=== PATIENT | male | born 1990 | race African-American/Black ===

== ENCOUNTER 2021-12-20 14:46 | Emergency (ER) | payer BC ==
[~2021-12-20] VITALS: Ht 213.4 cm; Wt 140.0 kg
[2021-12-20 15:19] VITALS: BP 121/98
[2021-12-20] MEDS ORDERED: XYL25J TOP (16:50)
[2021-12-20] MEDS ORDERED: DEXA4TAB67 PO (16:50)
== END 2021-12-20 16:58 | disposition home or self-care (01) ==
LOC: ER 14:48
DX: U07.1 COVID-19 (principal); J02.8 Acute pharyngitis due to other specified organisms; Z79.899 Other long term (current) drug therapy
CPT/HCPCS: 99283

== ENCOUNTER 2022-04-17 18:37 | Inpatient (IN) | payer BC ==
[~2022-04-17] VITALS: Ht 213.4 cm; Wt 171.4 kg
[~2022-04-17 18:37] MED LIST: DEXA4TAB67 PO; XYL25J TOP
[2022-04-17 19:35] LABS: BASOPHILS # (AUTO) 0.1 X10'3 (0-0.2); BASOPHILS % (AUTO) 0.8 % (0-1); EOSINOPHILS # (AUTO) 0.2 X10'3 (0-0.9); EOSINOPHILS % (AUTO) 1.8 % (0-6); LYMPHOCYTES % (AUTO) 32.1 % (21-51); MEAN CORPUSCULAR HEMOGLOBIN 25.4 PG (27.0-31.0); MEAN CORPUSCULAR HGB CONC 31.7 g/dL (33.0-36.5); MEAN CORPUSCULAR VOLUME 80.1 FL (78-98); MEAN PLATELET VOLUME 11.5 FL (7.4-10.4); MONOCYTES # (AUTO) 1.1 X10'3 (0-0.9); MONOCYTES % (AUTO) 11.3 % (2-12); NEUTROPHILS # (AUTO) 5.1 X10'3 (1.8-7.7); PLATELET COUNT 87 X10'3 (140-440); RED BLOOD COUNT 2.44 X10'6 (4.70-6.10); RED CELL DISTRIBUTION WIDTH 20.7 % (11.5-14.5); WHITE BLOOD COUNT 9.4 X10'3 (4.5-11.0)
[2022-04-17 19:49] LABS: HEMATOCRIT 19.5 % (42.0-52.0); HEMOGLOBIN 6.2 g/dl (14.0-17.9)
[2022-04-17 19:51] LABS: ALANINE AMINOTRANSFERASE 92 U/L (12-78); ALBUMIN 1.8 G/DL (3.4-5.0); ALBUMIN/GLOBULIN RATIO 0.5 (1.1-1.5); ALKALINE PHOSPHATASE 265 IU/L (46-116); ANION GAP 3 (8-16); ASPARTATE AMINO TRANSFERASE 109 U/L (10-37); BILIRUBIN,TOTAL 2.5 MG/DL (0.1-1.0); BLOOD UREA NITROGEN 26 MG/DL (7-18); BUN/CREATININE RATIO 30.6 (5.4-32.0); CALCIUM 7.7 MG/DL (8.5-10.1); CHLORIDE 109 MMOL/L (99-107); CREATININE 0.85 MG/DL (0.60-1.10); GLUCOSE 113 MG/DL (70-104); POTASSIUM 4.4 MMOL/L (3.5-5.1); SODIUM 137 MMOL/L (135-145); TOTAL CARBON DIOXIDE 25.4 MMOL/L (24-32); TOTAL PROTEIN 5.1 G/DL (6.4-8.2); eGFR > 90 ML/MIN
[2022-04-17] MEDS ORDERED: pantoprazole 40MG/NS 100ML BAG 100 ML IV ONE (19:55)
[2022-04-17] MEDS ORDERED: ondansetron/PF 4mg/2ml inj IV ONE (19:55)
[2022-04-17] MEDS ORDERED: normal saline 1000ML IV soln IVB ONE (19:55)
[2022-04-17] MEDS ORDERED: pantoprazole 40mg IV 80 MG in normal saline 100ml IV soln 100 ML IV ONE (19:55)
[2022-04-17 20:06] LABS: ETHANOL < 0.010 GM/DL (0.0-0.010)
[2022-04-17 20:31] LABS: ANISOCYTOSIS 3+; PLATELET ESTIMATE DECREASED
[2022-04-17 20:34] LABS: HYPOCHROMASIA 2+; LARGE PLATELETS FEW
[2022-04-17 20:35] LABS: TARGET CELLS FEW
[2022-04-17] MEDS: pantoprazole 40MG/NS 100ML BAG 100 ML IV SCH (21:01)
[2022-04-17 21:43] LABS: OCCULT BLOOD STOOL POSITIVE (Neg)
[2022-04-17 22:33] VITALS: BP 126/62
[2022-04-17 22:49] VITALS: BP 111/55
--- NOTE | 2022-04-17 23:00 | NUR ---
Informed Dr Carter of the temperature of the patient, he ordered tylenol.
[2022-04-17 23:04] VITALS: BP 118/44
[2022-04-17] MEDS ORDERED: acetaminophen 325mg tablet PO ONE (23:05)
[2022-04-17] MEDS ORDERED: acetaminophen 325mg tablet PO STA (23:17)
[2022-04-18] VITALS (12 sets, daily range): BP systolic 120–139; BP diastolic 60–81
[2022-04-18] MEDS: normal saline 1000ml 1,000 ML IV SCH ×4 (00:05→18:13)
[2022-04-18] MEDS ORDERED: mag hydrox/Alum hydrox/simeth 30ml oral suspension PO PRN (00:05)
[2022-04-18] MEDS ORDERED: morphine 2 MG/ML inj. syringe IV PRN ×2 (00:05)
[2022-04-18] MEDS ORDERED: diphenhydrAMINE 50 mg/ml inj IV PRN (00:05)
[2022-04-18] MEDS ORDERED: acetaminophen 650mg rectal suppository RC PRN (00:05)
[2022-04-18] MEDS ORDERED: HYDROcodone/acetaminophen 5mg/325mg tablet PO PRN (00:05)
[2022-04-18] MEDS ORDERED: acetaminophen 325mg tablet PO PRN ×2 (00:05)
[2022-04-18] MEDS ORDERED: diphenhydrAMINE 25mg capsule PO PRN (00:05)
[2022-04-18] MEDS ORDERED: HYDROmorphone inj. 0.5 MG/0.5 ML DISP.SYRIN IV PRN (00:05)
[2022-04-18] MEDS ORDERED: ondansetron/PF 4mg/2ml inj IV PRN (00:05)
[2022-04-18] MEDS ORDERED: bisacodyl 10mg suppository rectal RC PRN (00:05)
[2022-04-18] MEDS ORDERED: ondansetron 4mg rapidly disintigrating tab PO PRN (00:05)
[2022-04-18] MEDS ORDERED: magnesium hydroxide 30ml (MOM) UD suspension PO PRN (00:05)
[2022-04-18] MEDS ORDERED: HYDROcodone/acetaminophen 10/325mg tab PO PRN (00:05)
[2022-04-18] MEDS: octreotide inj. 500 MCG in normal saline 100ml IV soln 97.5 ML IV SCH ×2 (00:07→20:47)
--- NOTE | 2022-04-18 00:11 | NUR ---
Pt to CT via stretcher and RN
--- NOTE | 2022-04-18 00:15 | NUR ---
> received report from ED RN , PAT, pt coming from CT scan with ongoing 1st unit of PRBC , to ff another 2nd unit, ongoing Protonix IV bag 1 out of 2, pt has limited IV access with new incoming orders, tranexamic and Vit K IV drip, pt pale and cool to touch otherwise stable vital signs
[2022-04-18] MEDS ORDERED: octreotide inj. 500 MCG in normal saline 100ml IV soln 97.5 ML IV SCH (00:20)
[2022-04-18] MEDS ORDERED: phytonadione inj. 1 MG in normal saline 100ml IV soln 100 ML IV ONE (00:20)
[2022-04-18] MEDS ORDERED: tranexamic acid inj. 1,000 MG in normal saline 100ml IV soln 100 ML IV ONE (00:55)
[2022-04-18 00:59] LABS: HEMOGLOBIN A1C 5.1 % (4.5-6.2)
[2022-04-18 01:07] LABS: CREATINE KINASE 423 U/L (39-308); LIPASE 109 U/L (73-393); MAGNESIUM 1.5 MG/DL (1.5-2.4); PHOSPHORUS 3.4 MG/DL (2.3-4.5)
[2022-04-18] MEDS: pantoprazole 40MG/NS 100ML BAG 100 ML IV SCH ×6 (03:50→21:16)
--- NOTE | 2022-04-18 04:57 | NUR ---
> 2nd unit PRBC infused and completed, no further reactions noted
--- NOTE | 2022-04-18 06:27 | NUR ---
> Protonix not finished yet, another bag to follow, report given to LEW Amezquita
[2022-04-18 07:43] LABS: BASOPHILS # (AUTO) 0.1 X10'3 (0-0.2); BASOPHILS % (AUTO) 0.8 % (0-1); EOSINOPHILS # (AUTO) 0.3 X10'3 (0-0.9); EOSINOPHILS % (AUTO) 2.7 % (0-6); HEMATOCRIT 23.4 % (42.0-52.0); HEMOGLOBIN 7.6 g/dl (14.0-17.9); LYMPHOCYTES # (AUTO) 3.1 X10'3 (1.1-4.8); LYMPHOCYTES % (AUTO) 32.5 % (21-51); MEAN CORPUSCULAR HEMOGLOBIN 26.5 PG (27.0-31.0); MEAN CORPUSCULAR HGB CONC 32.5 g/dL (33.0-36.5); MEAN CORPUSCULAR VOLUME 81.5 FL (78-98); MEAN PLATELET VOLUME 11.3 FL (7.4-10.4); MONOCYTES # (AUTO) 1.3 X10'3 (0-0.9); MONOCYTES % (AUTO) 13.7 % (2-12); NEUTROPHILS # (AUTO) 4.9 X10'3 (1.8-7.7); NEUTROPHILS % (AUTO) 50.3 % (42-75); PLATELET COUNT 80 X10'3 (140-440); RED BLOOD COUNT 2.87 X10'6 (4.70-6.10); RED CELL DISTRIBUTION WIDTH 19.9 % (11.5-14.5); WHITE BLOOD COUNT 9.7 X10'3 (4.5-11.0)
[2022-04-18 07:51] LABS: ALANINE AMINOTRANSFERASE 92 U/L (12-78); ALBUMIN 1.8 G/DL (3.4-5.0); ALBUMIN/GLOBULIN RATIO 0.5 (1.1-1.5); ALKALINE PHOSPHATASE 262 IU/L (46-116); ANION GAP 5 (8-16); ASPARTATE AMINO TRANSFERASE 110 U/L (10-37); BILIRUBIN,TOTAL 3.2 MG/DL (0.1-1.0); BLOOD UREA NITROGEN 24 MG/DL (7-18); BUN/CREATININE RATIO 31.2 (5.4-32.0); CALCIUM 7.4 MG/DL (8.5-10.1); CHLORIDE 110 MMOL/L (99-107); CREATININE 0.77 MG/DL (0.60-1.10); GLUCOSE 98 MG/DL (70-104); POTASSIUM 4.5 MMOL/L (3.5-5.1); SODIUM 139 MMOL/L (135-145); TOTAL CARBON DIOXIDE 23.7 MMOL/L (24-32); TOTAL PROTEIN 5.3 G/DL (6.4-8.2); eGFR > 90 ML/MIN
[2022-04-18] MEDS: docusate sod 100mg capsule PO SCH ×2 (08:00→20:47)
[2022-04-18] MEDS ORDERED: fentaNYL/PF 50MCG/1 ML 2ML syringe ONE (08:53)
[2022-04-18] MEDS ORDERED: diphenhydrAMINE 50 mg/ml inj ONE (08:53)
[2022-04-18] MEDS ORDERED: MIDAZolam 1 MG/ML 5ML VIAL ONE (08:53)
[2022-04-18] MEDS ORDERED: LIDOcaine Viscous 15ml cup ONE (08:53)
--- NOTE | 2022-04-18 11:02 | NUR ---
Patients brother at bedside, updated on pt condition with patients permission.
[2022-04-18] MEDS ORDERED: NO HOME MEDS (15:58)
--- NOTE | 2022-04-18 16:25 | NUR ---
PER DR. JAYRO STANLEY TO START PATIENT ON CLEAR LIQUIDS AND ADVANCE TOLERATED.
--- NOTE | 2022-04-18 19:30 | NUR ---
A&Ox4, GCS 15, denies pain/discomfort. skin warm , dry and jaundice including sclera. Denies dizzines, weakness, and shortness of breath. Awaiting admission
[2022-04-18] MEDS ORDERED: temazepam 15mg capsule PO PRN (21:00)
[2022-04-18] MEDS: diatr meglu/diatrizoate 30ml oral sol.-(3 dose) bottle PO SCH (21:16)
[2022-04-18 21:34] LABS: CLARITY,URINE CLEAR (Clear); GLUCOSE, URINE NEGATIVE (Neg); KETONES,URINE NEGATIVE (Neg); LEUKOCYTE ESTERASE ,URINE NEGATIVE (Neg); NITRITES, URINE NEGATIVE (Neg); OCCULT BLOOD,URINE NEGATIVE (Neg); PROTEIN,URINE NEGATIVE (Neg)
[2022-04-18 21:35] LABS: UA COLLECTION TYPE CLN CATCH MIDSTREAM
[2022-04-18 21:36] LABS: COLOR,URINE DARK YELLOW (Yellow)
[2022-04-18 21:46] LABS: URINE AMPHETAMINE SCREEN NEGATIVE (Neg); URINE BARBITUATE SCREEN NEGATIVE (Neg); URINE BENZODIAZEPINES SCREEN POSITIVE (Neg); URINE CANNABINOID SCREEN NEGATIVE (Neg); URINE COCAINE SCREEN NEGATIVE (Neg); URINE METHADONE SCREEN NEGATIVE (Neg); URINE OPIATE SCREEN NEGATIVE (Neg); URINE PHENCYCLIDINE SCREEN NEGATIVE (Neg)
[2022-04-19] MEDS: pantoprazole 40MG/NS 100ML BAG 100 ML IV SCH ×5 (00:56→19:28)
[2022-04-19] MEDS: normal saline 1000ml 1,000 ML IV SCH ×4 (00:57→22:54)
[2022-04-19] MEDS: diatr meglu/diatrizoate 30ml oral sol.-(3 dose) bottle PO SCH ×2 (07:18→09:17)
[2022-04-19] MEDS: docusate sod 100mg capsule PO SCH ×2 (08:44→19:30)
[2022-04-19] MEDS ORDERED: iohexol 350MG/ML 100ml bottle IV ONE (08:45)
[2022-04-19 09:01] LABS: BASOPHILS % (AUTO) 0.5 % (0-1); EOSINOPHILS # (AUTO) 0.4 X10'3 (0-0.9); EOSINOPHILS % (AUTO) 5.7 % (0-6); HEMATOCRIT 23.3 % (42.0-52.0); HEMOGLOBIN 7.5 g/dl (14.0-17.9); LYMPHOCYTES # (AUTO) 2.1 X10'3 (1.1-4.8); LYMPHOCYTES % (AUTO) 29.6 % (21-51); MEAN CORPUSCULAR HEMOGLOBIN 26.7 PG (27.0-31.0); MEAN CORPUSCULAR HGB CONC 32.4 g/dL (33.0-36.5); MEAN CORPUSCULAR VOLUME 82.5 FL (78-98); MEAN PLATELET VOLUME 11.3 FL (7.4-10.4); MONOCYTES # (AUTO) 0.8 X10'3 (0-0.9); MONOCYTES % (AUTO) 11.7 % (2-12); NEUTROPHILS # (AUTO) 3.8 X10'3 (1.8-7.7); NEUTROPHILS % (AUTO) 52.5 % (42-75); PLATELET COUNT 66 X10'3 (140-440); RED BLOOD COUNT 2.82 X10'6 (4.70-6.10); RED CELL DISTRIBUTION WIDTH 19.5 % (11.5-14.5); WHITE BLOOD COUNT 7.2 X10'3 (4.5-11.0)
[2022-04-19 09:37] LABS: ALANINE AMINOTRANSFERASE 90 U/L (12-78); ALBUMIN 1.8 G/DL (3.4-5.0); ALBUMIN/GLOBULIN RATIO 0.5 (1.1-1.5); ALKALINE PHOSPHATASE 246 IU/L (46-116); ANION GAP 7 (8-16); ASPARTATE AMINO TRANSFERASE 107 U/L (10-37); BLOOD UREA NITROGEN 15 MG/DL (7-18); BUN/CREATININE RATIO 20.8 (5.4-32.0); CALCIUM 7.4 MG/DL (8.5-10.1); CHLORIDE 111 MMOL/L (99-107); CHOL/HDL RATIO 5.2 (0.00-4.99); CHOLESTEROL 114 MG/DL (0-200); CREATININE 0.72 MG/DL (0.60-1.10); GLUCOSE 78 MG/DL (70-104); HDL CHOLESTEROL 22 MG/DL (35-60); LDL CHOLESTEROL 75 MG/DL (50-100); POTASSIUM 4.2 MMOL/L (3.5-5.1); SODIUM 142 MMOL/L (135-145); TOTAL CARBON DIOXIDE 24.3 MMOL/L (24-32); TOTAL PROTEIN 5.5 G/DL (6.4-8.2); TRIGLYCERIDES 76 MG/DL (20-135); eGFR > 90 ML/MIN
--- NOTE | 2022-04-19 10:22 | NUR ---
Pt transferred to fast track at 1020. RN gave verbal report to Argenis and LEW Rojas. Pt stable. VS WNL.
[2022-04-19 12:26] LABS: HBSAG SCREEN Negative (Negative); HEP B CORE AB, TOT Negative (Negative); HEPATITIS C ANTIBODY <0.1 s/co ratio (0.0-0.9)
[2022-04-19 12:38] LABS: ANISOCYTOSIS 2+; PLATELET ESTIMATE DECREASED
[2022-04-19 12:39] LABS: BURR CELLS FEW; LARGE PLATELETS MODERATE; SCHISTOCYTES FEW
[2022-04-19 12:40] LABS: HYPOCHROMASIA 1+; POLYCHROMASIA FEW
--- NOTE | 2022-04-19 13:19 | NUR ---
RN gave nurse report to LEW Tavera in short stay. Pt stable. Fast track team will transfer pt to the floor. Addendum: 04/19/22 at 1319 by CALLY Report given @ 1314.
--- NOTE | 2022-04-19 13:33 | NUR ---
Patient arrived to room 1336 cardiac short stay stable at this time. Brother Tevin at bedside. Received report from Harshil HACKETT from the ER. Will continue to monitor.
[2022-04-19 13:47] VITALS: BP 136/75
[2022-04-19] MEDS ORDERED: LIDOcaine 1% (10mg/ml) 2ml vial ONE (14:14)
[2022-04-19] MEDS: octreotide inj. 500 MCG in normal saline 100ml IV soln 97.5 ML IV SCH (15:19)
[2022-04-19 15:23] VITALS: BP 131/79
[2022-04-19 15:30] VITALS: BP 134/77
[2022-04-19 15:55] VITALS: BP 141/78
--- NOTE | 2022-04-19 16:15 | NUR ---
Patient admitted to tele room 3023 A, report given to Love Brink RN prior to transport. compliance monitor uneventful during transfer. Patient VSS. Belongings at bedside. Tele monitor placed on patient. Love HACKETT and Parisa HACKETT at bedside. Called patient's contact- Tevin to make aware of new room number.
[2022-04-19 18:00] VITALS: BP 145/82
--- NOTE | 2022-04-19 18:41 | NUR ---
Problems reprioritized. Patient report given, questions answered & plan of care reviewed with Cindi HACKETT, patient stable at transfer of care.
--- NOTE | 2022-04-19 18:42 | NUR ---
Patient in room PCU 3023. I have received report from LEW Mccauley and had the opportunity to ask questions and assume patient care.
[2022-04-19 21:06] LABS: HEMATOCRIT 22.7 % (42.0-52.0); HEMOGLOBIN 7.4 g/dl (14.0-17.9); MEAN CORPUSCULAR HEMOGLOBIN 26.8 PG (27.0-31.0); MEAN CORPUSCULAR HGB CONC 32.4 g/dL (33.0-36.5); MEAN CORPUSCULAR VOLUME 82.7 FL (78-98); PLATELET COUNT 65 X10'3 (140-440); RED BLOOD COUNT 2.75 X10'6 (4.70-6.10); RED CELL DISTRIBUTION WIDTH 20.1 % (11.5-14.5); WHITE BLOOD COUNT 6.9 X10'3 (4.5-11.0)
[2022-04-19 22:00] VITALS: BP 128/70
[2022-04-20] MEDS: pantoprazole 40MG/NS 100ML BAG 100 ML IV SCH ×5 (00:39→19:57)
[2022-04-20] MEDS: normal saline 1000ml 1,000 ML IV SCH (05:36)
--- NOTE | 2022-04-20 06:19 | NUR ---
Problems reprioritized. Patient report given, questions answered & plan of care reviewed with LEW Heck.
[2022-04-20 06:30] VITALS: BP 129/67
--- NOTE | 2022-04-20 07:11 | NUR ---
Patient in room PCU 3023. I have received report from Cindi HACKETT and had the opportunity to ask questions and assume patient care.Bedside report completed. Call light in reach. Pt denies needs. Addendum: 04/20/22 at 0712 by Coral Brink RN Amended: Links added.
[2022-04-20] MEDS: docusate sod 100mg capsule PO SCH ×2 (08:00→20:00)
[2022-04-20] MEDS: octreotide inj. 500 MCG in normal saline 100ml IV soln 97.5 ML IV SCH (08:13)
[2022-04-20 11:00] VITALS: BP 134/74
[2022-04-20 13:06] LABS: BASOPHILS % (AUTO) 0.6 % (0-1); EOSINOPHILS # (AUTO) 0.2 X10'3 (0-0.9); EOSINOPHILS % (AUTO) 4.4 % (0-6); HEMOGLOBIN 7.5 g/dl (14.0-17.9); LYMPHOCYTES # (AUTO) 1.7 X10'3 (1.1-4.8); LYMPHOCYTES % (AUTO) 30.4 % (21-51); MEAN CORPUSCULAR HEMOGLOBIN 27.1 PG (27.0-31.0); MEAN CORPUSCULAR HGB CONC 32.6 g/dL (33.0-36.5); MEAN CORPUSCULAR VOLUME 82.9 FL (78-98); MEAN PLATELET VOLUME 10.7 FL (7.4-10.4); MONOCYTES # (AUTO) 0.6 X10'3 (0-0.9); NEUTROPHILS # (AUTO) 3.1 X10'3 (1.8-7.7); NEUTROPHILS % (AUTO) 54.6 % (42-75); PLATELET COUNT 77 X10'3 (140-440); RED BLOOD COUNT 2.77 X10'6 (4.70-6.10); RED CELL DISTRIBUTION WIDTH 20.2 % (11.5-14.5); WHITE BLOOD COUNT 5.7 X10'3 (4.5-11.0)
[2022-04-20 13:10] LABS: PSA, FREE 0.04 ng/mL
[2022-04-20 13:24] LABS: ALANINE AMINOTRANSFERASE 99 U/L (12-78); ALBUMIN 1.9 G/DL (3.4-5.0); ALBUMIN/GLOBULIN RATIO 0.5 (1.1-1.5); ALKALINE PHOSPHATASE 266 IU/L (46-116); ANION GAP 8 (8-16); ASPARTATE AMINO TRANSFERASE 109 U/L (10-37); BILIRUBIN,TOTAL 2.9 MG/DL (0.1-1.0); BLOOD UREA NITROGEN 12 MG/DL (7-18); CALCIUM 7.5 MG/DL (8.5-10.1); CHLORIDE 109 MMOL/L (99-107); GLUCOSE 89 MG/DL (70-104); SODIUM 140 MMOL/L (135-145); TOTAL CARBON DIOXIDE 22.8 MMOL/L (24-32); TOTAL PROTEIN 5.5 G/DL (6.4-8.2); eGFR > 90 ML/MIN
--- NOTE | 2022-04-20 13:41 | NUR ---
PAGER ID: [phone] MESSAGE: [phone] Rakan. He is too BIG for [facility] MRI. We also do not have a power injector needed for a Dynamic Liver MRI. Prerna does not as well. Only I would be able to complete this test. Coral PCUPAGER ID: [phone]
[2022-04-20 15:00] VITALS: BP 131/71
[2022-04-20 18:00] VITALS: BP 149/86
--- NOTE | 2022-04-20 18:19 | NUR ---
Problems reprioritized. Patient report given, questions answered & plan of care reviewed with Maria Victoria HACKETT. Bedside report completed. Family at bedside.. Addendum: 04/20/22 at 1820 by Coral Brink RN Amended: Links added.
[2022-04-20 22:00] VITALS: BP 141/82
[2022-04-21] VITALS (10 sets, daily range): BP systolic 124–139; BP diastolic 73–85
[2022-04-21] MEDS: pantoprazole 40MG/NS 100ML BAG 100 ML IV SCH ×5 (01:10→21:12)
[2022-04-21] MEDS: octreotide inj. 500 MCG in normal saline 100ml IV soln 97.5 ML IV SCH ×2 (06:55→06:56)
--- NOTE | 2022-04-21 07:46 | NUR ---
Patient in room PCU 3023. I have received report from LEW LAKE, and had the opportunity to ask questions and assume patient care.
--- NOTE | 2022-04-21 07:50 | NUR ---
Patient in room PCU 3023. I have received report from LEW DELVALLE, and had the opportunity to ask questions and assume patient care.
--- NOTE | 2022-04-21 07:56 | NUR ---
PAGE SENT PAGER ID: [phone] MESSAGE: [phone], ROYAL COLÓNAHON, PT'S BROTHER WANTS TO PLACE PT ON COMFORT CARE. PLEASE PHONE SIVA SHAHON - [phone]. THANK YOU, KAREN [phone] Addendum: 04/21/22 at 0758 by Karen Dallas RN WRONG PT
[2022-04-21] MEDS: docusate sod 100mg capsule PO SCH (08:00)
[2022-04-21 09:36] LABS: MEAN PLATELET VOLUME 9.9 FL (7.4-10.4)
[2022-04-21 09:38] LABS: MEAN CORPUSCULAR HEMOGLOBIN 26.8 PG (27.0-31.0); MEAN CORPUSCULAR HGB CONC 32.1 g/dL (33.0-36.5); MEAN CORPUSCULAR VOLUME 83.5 FL (78-98); PLATELET COUNT 74 X10'3 (140-440); RED BLOOD COUNT 2.55 X10'6 (4.70-6.10); RED CELL DISTRIBUTION WIDTH 19.6 % (11.5-14.5); WHITE BLOOD COUNT 4.7 X10'3 (4.5-11.0)
[2022-04-21 09:40] LABS: HEMOGLOBIN 6.8 g/dl (14.0-17.9)
[2022-04-21 09:41] LABS: HEMATOCRIT 21.3 % (42.0-52.0)
--- NOTE | 2022-04-21 09:42 | NUR ---
CRITICAL LAB VALUES TAKEN FROM LAB, REPORTED TO PRIMARY RN.
--- NOTE | 2022-04-21 09:46 | NUR ---
PAGE SENT PAGER ID: [phone] MESSAGE: [id number], NICOLLE HANLEY, CRITICAL LAB - HGB 6.8, HCT 21.3. THANK YOU, VIVIEN [id number]
--- NOTE | 2022-04-21 09:47 | NUR ---
NO NEW ORDERS AT THIS TIME
[2022-04-21 09:56] LABS: ANISOCYTOSIS 2+; MICROCYTOSIS 1+; PLATELET ESTIMATE DECREASED; TOTAL CELLS COUNTED 100
[2022-04-21 09:57] LABS: HYPOCHROMASIA 1+; POIKILOCYTOSIS 1+
[2022-04-21 09:58] LABS: ALANINE AMINOTRANSFERASE 95 U/L (12-78); ALBUMIN 1.8 G/DL (3.4-5.0); ALBUMIN/GLOBULIN RATIO 0.5 (1.1-1.5); ALKALINE PHOSPHATASE 253 IU/L (46-116); ANION GAP 9 (8-16); ASPARTATE AMINO TRANSFERASE 101 U/L (10-37); BILIRUBIN,TOTAL 2.6 MG/DL (0.1-1.0); BLOOD UREA NITROGEN 10 MG/DL (7-18); BUN/CREATININE RATIO 12.2 (5.4-32.0); CALCIUM 7.3 MG/DL (8.5-10.1); CHLORIDE 107 MMOL/L (99-107); CREATININE 0.82 MG/DL (0.60-1.10); GLUCOSE 113 MG/DL (70-104); SODIUM 140 MMOL/L (135-145); TOTAL CARBON DIOXIDE 24.1 MMOL/L (24-32); TOTAL PROTEIN 5.1 G/DL (6.4-8.2); eGFR > 90 ML/MIN
[2022-04-21] MEDS ORDERED: morphine 2 MG/ML inj. syringe IV PRN ×2 (16:25)
--- NOTE | 2022-04-21 18:42 | NUR ---
Problems reprioritized. Patient report given, questions answered & plan of care reviewed with LEW MONROY.
[2022-04-21 19:12] LABS: HEMATOCRIT 24.1 % (42.0-52.0); HEMOGLOBIN 7.9 g/dl (14.0-17.9); MEAN CORPUSCULAR HGB CONC 32.8 g/dL (33.0-36.5); MEAN CORPUSCULAR VOLUME 82.2 FL (78-98); MEAN PLATELET VOLUME 10.1 FL (7.4-10.4); PLATELET COUNT 86 X10'3 (140-440); RED BLOOD COUNT 2.93 X10'6 (4.70-6.10); RED CELL DISTRIBUTION WIDTH 19.5 % (11.5-14.5); WHITE BLOOD COUNT 5.7 X10'3 (4.5-11.0)
[2022-04-22] VITALS (8 sets, daily range): BP systolic 122–144; BP diastolic 68–90
[2022-04-22] MEDS: pantoprazole 40MG/NS 100ML BAG 100 ML IV SCH ×5 (01:37→21:15)
[2022-04-22] MEDS: octreotide inj. 500 MCG in normal saline 100ml IV soln 97.5 ML IV SCH ×2 (01:42→09:06)
[2022-04-22 05:53] LABS: BASOPHILS # (AUTO) 0.1 X10'3 (0-0.2); BASOPHILS % (AUTO) 1.2 % (0-1); EOSINOPHILS # (AUTO) 0.3 X10'3 (0-0.9); EOSINOPHILS % (AUTO) 5.8 % (0-6); HEMATOCRIT 24.7 % (42.0-52.0); LYMPHOCYTES # (AUTO) 1.2 X10'3 (1.1-4.8); LYMPHOCYTES % (AUTO) 24.2 % (21-51); MEAN CORPUSCULAR HEMOGLOBIN 26.7 PG (27.0-31.0); MEAN CORPUSCULAR HGB CONC 32.4 g/dL (33.0-36.5); MEAN CORPUSCULAR VOLUME 82.4 FL (78-98); MEAN PLATELET VOLUME 9.7 FL (7.4-10.4); MONOCYTES # (AUTO) 0.6 X10'3 (0-0.9); MONOCYTES % (AUTO) 12.5 % (2-12); NEUTROPHILS # (AUTO) 2.8 X10'3 (1.8-7.7); NEUTROPHILS % (AUTO) 56.3 % (42-75); PLATELET COUNT 91 X10'3 (140-440); RED CELL DISTRIBUTION WIDTH 19.2 % (11.5-14.5)
[2022-04-22 06:17] LABS: ALANINE AMINOTRANSFERASE 98 U/L (12-78); ALBUMIN 1.8 G/DL (3.4-5.0); ALBUMIN/GLOBULIN RATIO 0.5 (1.1-1.5); ALKALINE PHOSPHATASE 278 IU/L (46-116); ANION GAP 5 (8-16); ASPARTATE AMINO TRANSFERASE 108 U/L (10-37); BILIRUBIN,TOTAL 3.1 MG/DL (0.1-1.0); BLOOD UREA NITROGEN 8 MG/DL (7-18); BUN/CREATININE RATIO 9.4 (5.4-32.0); CALCIUM 7.3 MG/DL (8.5-10.1); CHLORIDE 110 MMOL/L (99-107); CREATININE 0.85 MG/DL (0.60-1.10); GLUCOSE 92 MG/DL (70-104); POTASSIUM 4.1 MMOL/L (3.5-5.1); SODIUM 139 MMOL/L (135-145); TOTAL CARBON DIOXIDE 24.4 MMOL/L (24-32); TOTAL PROTEIN 5.2 G/DL (6.4-8.2); eGFR > 90 ML/MIN
--- NOTE | 2022-04-22 15:01 | NUR ---
Paged Dr Richards PAGER ID: [phone] MESSAGE: [id number]. Rakan. Pt concerned re: unknown diagnosis & does not want to be d/c'd prematurely. FYI.
--- NOTE | 2022-04-22 15:07 | NUR ---
Per ; we are working with Case mgmt for open MRI. Advised patient of such. Pt verbalized understanding.
[2022-04-22] MEDS: normal saline 1000ml 1,000 ML IV SCH (16:18)
--- NOTE | 2022-04-22 17:41 | NUR ---
Pt and pt family has had many questions throughout shift. Pt states that Dr Thompson said that pt will be d/c'd and have to do MRI outpatient. Confirmed with Dr Richards that we are working on open MRI with case mgmt. Pt states that he is worried about all these different answers. Pt does not feel safe to be d/c'd until a diagnosis has been made. Reiterated again that Dr Richards is working with case mgmt re: open MRI.
--- NOTE | 2022-04-22 17:57 | NUR ---
Paged [facility] [phone]. Rakan. see my note from 04/22 at 8736 re: patient concerns. SANDY Case
--- NOTE | 2022-04-22 18:21 | NUR ---
Student documentation: I have reviewed and agree with all interventions, assessments performed and documented by Cece.
--- NOTE | 2022-04-22 18:21 | NUR ---
Student Medication Administration: For this medication-pass time frame, all medication were reviewed, dispensed, administered and documented per hospital policy by Cece, eri and myself.
[2022-04-23] MEDS: pantoprazole 40MG/NS 100ML BAG 100 ML IV SCH ×2 (01:47→06:56)
[2022-04-23] MEDS: octreotide inj. 500 MCG in normal saline 100ml IV soln 97.5 ML IV SCH (01:50)
[2022-04-23 02:00] VITALS: BP 108/59
[2022-04-23 06:00] VITALS: BP 122/86
[2022-04-23 06:54] LABS: BASOPHILS % (AUTO) 0.5 % (0-1); EOSINOPHILS # (AUTO) 0.2 X10'3 (0-0.9); EOSINOPHILS % (AUTO) 2.7 % (0-6); HEMATOCRIT 25.3 % (42.0-52.0); HEMOGLOBIN 8.4 g/dl (14.0-17.9); LYMPHOCYTES # (AUTO) 1.3 X10'3 (1.1-4.8); LYMPHOCYTES % (AUTO) 21.9 % (21-51); MEAN CORPUSCULAR HEMOGLOBIN 27.3 PG (27.0-31.0); MEAN CORPUSCULAR HGB CONC 33.2 g/dL (33.0-36.5); MEAN CORPUSCULAR VOLUME 82.1 FL (78-98); MEAN PLATELET VOLUME 9.8 FL (7.4-10.4); MONOCYTES # (AUTO) 0.8 X10'3 (0-0.9); MONOCYTES % (AUTO) 13.3 % (2-12); NEUTROPHILS # (AUTO) 3.8 X10'3 (1.8-7.7); NEUTROPHILS % (AUTO) 61.6 % (42-75); PLATELET COUNT 80 X10'3 (140-440); RED BLOOD COUNT 3.08 X10'6 (4.70-6.10); RED CELL DISTRIBUTION WIDTH 18.8 % (11.5-14.5); WHITE BLOOD COUNT 6.1 X10'3 (4.5-11.0)
[2022-04-23 07:20] LABS: ANISOCYTOSIS 2+; HYPOCHROMASIA 2+; PLATELET ESTIMATE DECREASED; SCHISTOCYTES FEW
[2022-04-23 07:22] LABS: POLYCHROMASIA FEW
[2022-04-23 07:26] LABS: ALANINE AMINOTRANSFERASE 100 U/L (12-78); ALBUMIN 1.6 G/DL (3.4-5.0); ALBUMIN/GLOBULIN RATIO 0.4 (1.1-1.5); ALKALINE PHOSPHATASE 289 IU/L (46-116); ANION GAP 7 (8-16); ASPARTATE AMINO TRANSFERASE 115 U/L (10-37); BILIRUBIN,TOTAL 2.9 MG/DL (0.1-1.0); BLOOD UREA NITROGEN 9 MG/DL (7-18); BUN/CREATININE RATIO 11.5 (5.4-32.0); CALCIUM 7.3 MG/DL (8.5-10.1); CHLORIDE 109 MMOL/L (99-107); CREATININE 0.78 MG/DL (0.60-1.10); GLUCOSE 91 MG/DL (70-104); SODIUM 135 MMOL/L (135-145); TOTAL CARBON DIOXIDE 18.8 MMOL/L (24-32); TOTAL PROTEIN 5.3 G/DL (6.4-8.2); eGFR > 90 ML/MIN
[2022-04-23 07:33] LABS: POTASSIUM 4.2 MMOL/L (3.5-5.1)
--- NOTE | 2022-04-23 09:19 | NUR ---
Initial: Pt admitted w/ hematemesis, cirrhosis w/ portal HTN and esophageal varices, and liver mass per EMR. Currently on Full liquid diet initially w/ 100% intake of meals though has been down to mostly 0% since night of 04/21. Recommend advancing pt to Regular or Sodium restricted diet as tolerated. Pt DOES NOT need Heart Healthy diet. Pt is at high risk for developing malnutrition if diet not advanced. Pt had paracentesis 04/22 w/ 2L out per documentation. LBM 04/20. Will continue to monitor. Recs: 1. Advance to Regular or Sodium Restricted diet as tolerated 2. Monitor need for additional food/ONS pending diet advancement 3. Bowel care per rx 4. Scaled wts Addendum: 04/23/22 at [address] Amended: Links added.
[2022-04-23 11:00] VITALS: BP 117/86
[2022-04-23 15:30] VITALS: BP 133/65
[2022-04-23 18:00] VITALS: BP 139/71
--- NOTE | 2022-04-23 18:22 | NUR ---
Student documentation: I have reviewed and agree with all interventions, assessments performed and documented by Cece.
--- NOTE | 2022-04-23 18:22 | NUR ---
Student Medication Administration: For this medication-pass time frame, all medication were reviewed, dispensed, administered and documented per hospital policy by eri Zhao and Jessica Arenas RN. .
[2022-04-23] MEDS: pantoprazole 40mg Tablet.DR PO SCH (21:01)
[2022-04-23 22:00] VITALS: BP 136/69
[2022-04-24 02:00] VITALS: BP 123/70
[2022-04-24 06:00] VITALS: BP 119/64
[2022-04-24] MEDS: pantoprazole 40mg Tablet.DR PO SCH ×2 (08:00→20:42)
[2022-04-24] MEDS ORDERED: LORazepam 2 mg/ml vial IV ONE (08:35)
[2022-04-24 11:00] VITALS: BP 122/53
--- NOTE | 2022-04-24 12:55 | NUR ---
sent to Dr. buchanan: [id number] Rakan: MRI at [facility] unable to do pt's MRI today. Pt will go tomorrow. Did you want to order labs for today? thank you. Ashley HACKETT [phone]
[2022-04-24 13:46] LABS: BASOPHILS # (AUTO) 0.1 X10'3 (0-0.2); BASOPHILS % (AUTO) 0.9 % (0-1); EOSINOPHILS # (AUTO) 0.1 X10'3 (0-0.9); EOSINOPHILS % (AUTO) 1.8 % (0-6); HEMATOCRIT 25.8 % (42.0-52.0); HEMOGLOBIN 8.2 g/dl (14.0-17.9); LYMPHOCYTES # (AUTO) 1.5 X10'3 (1.1-4.8); LYMPHOCYTES % (AUTO) 20.8 % (21-51); MEAN CORPUSCULAR HEMOGLOBIN 26.1 PG (27.0-31.0); MEAN CORPUSCULAR HGB CONC 31.9 g/dL (33.0-36.5); MEAN PLATELET VOLUME 9.2 FL (7.4-10.4); MONOCYTES # (AUTO) 0.8 X10'3 (0-0.9); MONOCYTES % (AUTO) 11.3 % (2-12); NEUTROPHILS # (AUTO) 4.6 X10'3 (1.8-7.7); NEUTROPHILS % (AUTO) 65.2 % (42-75); PLATELET COUNT 105 X10'3 (140-440); RED BLOOD COUNT 3.15 X10'6 (4.70-6.10); RED CELL DISTRIBUTION WIDTH 18.8 % (11.5-14.5); WHITE BLOOD COUNT 7.1 X10'3 (4.5-11.0)
[2022-04-24 14:05] LABS: ALANINE AMINOTRANSFERASE 101 U/L (12-78); ALBUMIN 1.8 G/DL (3.4-5.0); ALBUMIN/GLOBULIN RATIO 0.5 (1.1-1.5); ALKALINE PHOSPHATASE 294 IU/L (46-116); ANION GAP 8 (8-16); ASPARTATE AMINO TRANSFERASE 104 U/L (10-37); BILIRUBIN,TOTAL 2.9 MG/DL (0.1-1.0); BLOOD UREA NITROGEN 9 MG/DL (7-18); BUN/CREATININE RATIO 10.8 (5.4-32.0); CALCIUM 7.6 MG/DL (8.5-10.1); CHLORIDE 108 MMOL/L (99-107); CREATININE 0.83 MG/DL (0.60-1.10); GLUCOSE 90 MG/DL (70-104); POTASSIUM 3.7 MMOL/L (3.5-5.1); SODIUM 141 MMOL/L (135-145); TOTAL CARBON DIOXIDE 25.4 MMOL/L (24-32); TOTAL PROTEIN 5.7 G/DL (6.4-8.2); eGFR > 90 ML/MIN
[2022-04-24 15:00] VITALS: BP 132/71
[2022-04-24 18:00] VITALS: BP 143/80
[2022-04-24 22:00] VITALS: BP 139/79
[2022-04-25 02:09] VITALS: BP 117/71
[2022-04-25] MEDS ORDERED: LORazepam 2 mg/ml vial IV ONE (06:00)
[2022-04-25 06:30] VITALS: BP 133/70
--- NOTE | 2022-04-25 06:30 | NUR ---
Patient in room PCU 3023. I have received report from Cris Chaparro RN and had the opportunity to ask questions and assume patient care.Bedside report completed. Pt awaiting MRI at [facility]. Addendum: 04/25/22 at 0728 by Coral Brink RN Amended: Links added.
[2022-04-25 07:03] LABS: BASOPHILS # (AUTO) 0.1 X10'3 (0-0.2); EOSINOPHILS # (AUTO) 0.2 X10'3 (0-0.9); EOSINOPHILS % (AUTO) 2.8 % (0-6); HEMOGLOBIN 8.4 g/dl (14.0-17.9); LYMPHOCYTES # (AUTO) 2.1 X10'3 (1.1-4.8); LYMPHOCYTES % (AUTO) 26.9 % (21-51); MEAN CORPUSCULAR HEMOGLOBIN 26.4 PG (27.0-31.0); MEAN CORPUSCULAR HGB CONC 32.3 g/dL (33.0-36.5); MEAN CORPUSCULAR VOLUME 81.8 FL (78-98); MEAN PLATELET VOLUME 9.7 FL (7.4-10.4); MONOCYTES % (AUTO) 12.8 % (2-12); NEUTROPHILS # (AUTO) 4.5 X10'3 (1.8-7.7); NEUTROPHILS % (AUTO) 56.5 % (42-75); PLATELET COUNT 111 X10'3 (140-440); RED BLOOD COUNT 3.17 X10'6 (4.70-6.10); RED CELL DISTRIBUTION WIDTH 18.9 % (11.5-14.5); WHITE BLOOD COUNT 7.9 X10'3 (4.5-11.0)
[2022-04-25 07:26] LABS: ALANINE AMINOTRANSFERASE 94 U/L (12-78); ALBUMIN 1.8 G/DL (3.4-5.0); ALBUMIN/GLOBULIN RATIO 0.5 (1.1-1.5); ALKALINE PHOSPHATASE 319 IU/L (46-116); ANION GAP 6 (8-16); ASPARTATE AMINO TRANSFERASE 104 U/L (10-37); BILIRUBIN,TOTAL 3.4 MG/DL (0.1-1.0); BLOOD UREA NITROGEN 10 MG/DL (7-18); BUN/CREATININE RATIO 10.8 (5.4-32.0); CALCIUM 7.6 MG/DL (8.5-10.1); CHLORIDE 106 MMOL/L (99-107); CREATININE 0.93 MG/DL (0.60-1.10); GLUCOSE 92 MG/DL (70-104); MAGNESIUM 1.7 MG/DL (1.5-2.4); PHOSPHORUS 3.6 MG/DL (2.3-4.5); SODIUM 137 MMOL/L (135-145); TOTAL CARBON DIOXIDE 24.8 MMOL/L (24-32); TOTAL PROTEIN 5.5 G/DL (6.4-8.2); eGFR > 90 ML/MIN
--- NOTE | 2022-04-25 07:43 | NUR ---
Reassessment: Pt continues on Full liquid diet w/ mostly 0% intake since the night of 04/21 not meeting needs. Pt leaving for MRI this morning per EMR, left message w/ RN recommending advancing to Regular diet if MD agreeable. Given inadequate energy intake r/t restrictive diet order this admit and moderate edema pt meets criteria for malnutrition. No change to recommendations at this time, will continue to monitor. Recs: 1. Advance to Regular diet as medically appropriate 2. Monitor need for additional food/ONS pending diet advancement 3. Bowel care per rx 4. Scaled wts Addendum: 04/25/22 at [address] Amended: Links added.
[2022-04-25] MEDS: pantoprazole 40mg Tablet.DR PO SCH ×2 (10:00→21:20)
[2022-04-25 11:16] VITALS: BP 116/56
[2022-04-25 14:42] VITALS: BP 116/61
--- NOTE | 2022-04-25 14:48 | NUR ---
Message: 3021s Rakan. Still waiting on report of MRI. We have contacted [facility]. Kayla has placed it stat now for radiologist to read. That was 2 hours age. rudolph PERALTA
[2022-04-25 18:00] VITALS: BP 123/54
--- NOTE | 2022-04-25 18:19 | NUR ---
Problems reprioritized. Patient report given, questions answered & plan of care reviewed with Sheryl HACKETT. Bedside report completed. Family at bedside. Call light in reach. Addendum: 04/25/22 at 1820 by Coral Brink RN Amended: Links added.
--- NOTE | 2022-04-25 19:06 | NUR ---
Patient in room PCU 3023A. I have received report from Coral HACKETT and had the opportunity to ask questions and assume patient care. Pt is laying semi fowlers in bed on cellphone. Pt on RA. No s/s of distress. Pt declines any c/o pain at this time. BLL, call light within reach, frequently used items in reach, frequent rounding, clam grader socks on. [facility]
[2022-04-25 22:00] VITALS: BP 127/73
--- NOTE | 2022-04-26 06:08 | NUR ---
Patient in room PCU 3023. I have received report from Sheryl HACKETT and had the opportunity to ask questions and assume patient care. Bedside report completed. Pt sleeping no distress, Call light in reach. Addendum: 04/26/22 at 0609 by Coral Brink RN Amended: Links added.
--- NOTE | 2022-04-26 06:12 | NUR ---
Problems reprioritized. Patient report given, questions answered & plan of care reviewed with Coral HACKETT.
[2022-04-26 06:26] LABS: HEMOGLOBIN 7.5 g/dl (14.0-17.9); WHITE BLOOD COUNT 6.4 X10'3 (4.5-11.0)
[2022-04-26 06:30] LABS: BASOPHILS # (AUTO) 0.1 X10'3 (0-0.2); EOSINOPHILS # (AUTO) 0.2 X10'3 (0-0.9); EOSINOPHILS % (AUTO) 3.3 % (0-6); HEMATOCRIT 23.1 % (42.0-52.0); LYMPHOCYTES # (AUTO) 1.4 X10'3 (1.1-4.8); LYMPHOCYTES % (AUTO) 21.4 % (21-51); MEAN CORPUSCULAR HEMOGLOBIN 26.4 PG (27.0-31.0); MEAN CORPUSCULAR HGB CONC 32.4 g/dL (33.0-36.5); MEAN CORPUSCULAR VOLUME 81.6 FL (78-98); MEAN PLATELET VOLUME 9.5 FL (7.4-10.4); MONOCYTES % (AUTO) 14.9 % (2-12); NEUTROPHILS # (AUTO) 3.8 X10'3 (1.8-7.7); NEUTROPHILS % (AUTO) 59.4 % (42-75); PLATELET COUNT 105 X10'3 (140-440); RED BLOOD COUNT 2.83 X10'6 (4.70-6.10); RED CELL DISTRIBUTION WIDTH 19.2 % (11.5-14.5)
[2022-04-26 06:37] LABS: ALANINE AMINOTRANSFERASE 88 U/L (12-78); ALBUMIN 1.6 G/DL (3.4-5.0); ALBUMIN/GLOBULIN RATIO 0.5 (1.1-1.5); ALKALINE PHOSPHATASE 283 IU/L (46-116); ANION GAP 6 (8-16); ASPARTATE AMINO TRANSFERASE 105 U/L (10-37); BILIRUBIN,TOTAL 2.7 MG/DL (0.1-1.0); BLOOD UREA NITROGEN 11 MG/DL (7-18); BUN/CREATININE RATIO 13.3 (5.4-32.0); CALCIUM 7.4 MG/DL (8.5-10.1); CHLORIDE 107 MMOL/L (99-107); CREATININE 0.83 MG/DL (0.60-1.10); GLUCOSE 94 MG/DL (70-104); MAGNESIUM 1.6 MG/DL (1.5-2.4); PHOSPHORUS 3.3 MG/DL (2.3-4.5); POTASSIUM 4.2 MMOL/L (3.5-5.1); SODIUM 138 MMOL/L (135-145); TOTAL CARBON DIOXIDE 25.1 MMOL/L (24-32); TOTAL PROTEIN 5.1 G/DL (6.4-8.2); eGFR > 90 ML/MIN
[2022-04-26 07:04] VITALS: BP 125/76
[2022-04-26 07:53] LABS: ANISOCYTOSIS 2+; HYPOCHROMASIA 2+; PLATELET ESTIMATE DECREASED; POIKILOCYTOSIS 1+; POLYCHROMASIA FEW
[2022-04-26 07:54] LABS: BURR CELLS FEW; SCHISTOCYTES FEW
--- NOTE | 2022-04-26 07:54 | NUR ---
I SPOKE WITH BLAYNE FROM [facility] AT [phone] AND HE SAID HE WOULD FAX THE MRI REPORT OVER THIS MORNING.
--- NOTE | 2022-04-26 08:00 | NUR ---
Message: [phone] TALON. MRI RESULTS FAXED OVER FROM [facility] AND PLACED IN PAPER CHART FOR YOUR REVIEW. [email or web address] Custom Responses: promotional table spacer Transaction number: [id number]
[2022-04-26] MEDS: pantoprazole 40mg Tablet.DR PO SCH (08:25)
[2022-04-26 11:24] VITALS: BP 125/64
--- NOTE | 2022-04-26 14:23 | NUR ---
Paged Dr Chau Message: [phone]. Rakan. is pt able to be d/c'd? Thx Jessica [phone] [phone] Transaction number: [id number]
[2022-04-26] MEDS ORDERED: furosemide 10 MG/1 ML 10ml inj IV ONE (14:33)
[2022-04-26] MEDS ORDERED: THIA50TA10 PO (14:34)
[2022-04-26] MEDS ORDERED: MULT-1085 PO (14:34)
[2022-04-26] MEDS ORDERED: FOLI0.4T6 PO (14:34)
[2022-04-26] MEDS ORDERED: PROP10TA10 PO (14:34)
[2022-04-26] MEDS ORDERED: FURO-150 PO (14:34)
[2022-04-26] MEDS ORDERED: SPIR25TA5 PO (14:34)
[2022-04-26] MEDS ORDERED: LACT10SO32 PO (14:34)
[2022-04-26] MEDS ORDERED: PANT40TA54 PO (14:34)
[2022-04-26] MEDS ORDERED: thiamine 100mg/ml 2ml inj. IV ONE (14:35)
[2022-04-26] MEDS ORDERED: spironolactone 25 MG tablet PO ONE (14:35)
[2022-04-26] MEDS ORDERED: propranolol 10mg tablet PO ONE (14:35)
--- NOTE | 2022-04-26 14:36 | NUR ---
Per MD: pt will be d/c'd but needs 4 meds administered before. Orders have been put in.
[2022-04-26 15:00] VITALS: BP 126/80
[2022-04-26 16:45] VITALS: BP 111/63
--- NOTE | 2022-04-26 16:45 | NUR ---
All written and verbal orders for D/C given. All questions answered. Pt stated he had all belongings. Removed pt PIV x2, Cannulas intact. Home with brother. Addendum: 04/26/22 at 1725 by Coral Brink RN Amended: Links added.
== END 2022-04-26 17:15 | disposition home or self-care (01) | DRG 433 ==
LOC: ER 18:38 → ED HOLD 04-18 00:09 → PCU 3S 04-19 16:29
PROVIDERS: ADMIT Family Medicine; ATTEND Family Medicine
PROC: 30233N1 Transfusion of Nonautologous Red Blood Cells into Peripheral Vein, Percutaneous Approach (ICD-10-PCS; 2022-04-17)
PROC: 0DB98ZX Excision of Duodenum, Via Natural or Artificial Opening Endoscopic, Diagnostic (ICD-10-PCS; principal; 2022-04-18)
PROC: 0DB68ZX Excision of Stomach, Via Natural or Artificial Opening Endoscopic, Diagnostic (ICD-10-PCS; 2022-04-18)
PROC: 0W9G3ZZ Drainage of Peritoneal Cavity, Percutaneous Approach (ICD-10-PCS; 2022-04-22)
DX: K74.60 Unspecified cirrhosis of liver (principal); D68.9 Coagulation defect, unspecified; K76.6 Portal hypertension; I85.10 Secondary esophageal varices without bleeding; D50.0 Iron deficiency anemia secondary to blood loss (chronic); D69.6 Thrombocytopenia, unspecified; E86.1 Hypovolemia; K31.89 Other diseases of stomach and duodenum; E88.09 Other disorders of plasma-protein metabolism, not elsewhere classified; G47.33 Obstructive sleep apnea (adult) (pediatric); K75.81 Nonalcoholic steatohepatitis (NASH); K80.20 Calculus of gallbladder without cholecystitis without obstruction; R07.89 Other chest pain; R16.0 Hepatomegaly, not elsewhere classified; R19.00 Intra-abdominal and pelvic swelling, mass and lump, unspecified site; R79.89 Other specified abnormal findings of blood chemistry; Z99.81 Dependence on supplemental oxygen; Z79.899 Other long term (current) drug therapy
CPT/HCPCS: 36415; 36430; 43239; 49083; 71045; 74176; 74177; 74183; 80053; 80061; 80305; 80320; 81003; 82103; 82140; 82248; 82272; 82378; 82550; 83036; 83690; 83735; 83880; 84100; 84153; 84154; 84443; 84484; 85007; 85008; 85025; 85027; 85610; 86038; 86255; 86301; 86304; 86704; 86705; 86706; 86803; 86885; 86900; 86901; 86920; 87081; 87340; 93005; 99152; 99153; 99291; A4620; C9113; G0378; J1200; J1940; J2250; J2354; J2405; J3010; J3411; J3430; J3490; J7030; J7040; P9016; Q9963; Q9967

== ENCOUNTER 2022-05-01 06:46 | Day surgery (SDC) | payer BC ==
[2022-05-01] VITALS (14 sets, daily range): BP systolic 102–142; BP diastolic 54–81
[~2022-05-01] VITALS: Ht 213.4 cm; Wt 157.0 kg
[~2022-05-01 06:46] MED LIST changes: -DEXA4TAB67 PO; +FOLI0.4T6 PO; +FURO-150 PO; +LACT10SO32 PO; +MULT-1085 PO; +PANT40TA54 PO; +PROP10TA10 PO; +SPIR25TA5 PO; +THIA50TA10 PO; -XYL25J TOP
[2022-05-01] MEDS ORDERED: normal saline 1000ml 1,000 ML IV PRN (07:20)
[2022-05-01 08:35] LABS: BASOPHILS # (AUTO) 0.1 X10'3 (0-0.2); EOSINOPHILS # (AUTO) 0.2 X10'3 (0-0.9); EOSINOPHILS % (AUTO) 3.5 % (0-6); HEMATOCRIT 25.8 % (42.0-52.0); HEMOGLOBIN 8.1 g/dl (14.0-17.9); LYMPHOCYTES # (AUTO) 1.5 X10'3 (1.1-4.8); LYMPHOCYTES % (AUTO) 30.5 % (21-51); MEAN CORPUSCULAR HEMOGLOBIN 25.4 PG (27.0-31.0); MEAN CORPUSCULAR HGB CONC 31.5 g/dL (33.0-36.5); MEAN CORPUSCULAR VOLUME 80.7 FL (78-98); MEAN PLATELET VOLUME 9.5 FL (7.4-10.4); MONOCYTES # (AUTO) 0.7 X10'3 (0-0.9); MONOCYTES % (AUTO) 13.4 % (2-12); NEUTROPHILS # (AUTO) 2.6 X10'3 (1.8-7.7); NEUTROPHILS % (AUTO) 50.6 % (42-75); PLATELET COUNT 100 X10'3 (140-440); RED CELL DISTRIBUTION WIDTH 20.2 % (11.5-14.5); WHITE BLOOD COUNT 5.1 X10'3 (4.5-11.0)
[2022-05-01] MEDS ORDERED: MULT-1085 PO (08:54)
[2022-05-01] MEDS ORDERED: LACT10SO3 PO (08:54)
[2022-05-01] MEDS ORDERED: PROP10TA10 PO (08:54)
[2022-05-01] MEDS ORDERED: PANT-47 PO (08:54)
[2022-05-01] MEDS ORDERED: FURO-150 PO (08:54)
[2022-05-01] MEDS ORDERED: FOLI0.4T14 PO (08:54)
[2022-05-01] MEDS ORDERED: SPIR25TA PO (08:55)
[2022-05-01] MEDS ORDERED: THIA50TA10 PO (08:56)
[2022-05-01] MEDS ORDERED: LIDOcaine 1% 30ml preserv. free vial SQ STA (09:50)
[2022-05-01 09:53] LABS: ANISOCYTOSIS 3+; HYPOCHROMASIA 2+; LARGE PLATELETS FEW; PLATELET ESTIMATE DECREASED
[2022-05-01 09:54] LABS: TARGET CELLS FEW
[2022-05-01 09:55] LABS: SCHISTOCYTES FEW
[2022-05-01 09:56] LABS: STOMATOCYTES FEW
--- NOTE | 2022-05-01 10:38 | NUR ---
MD at bedside with patient and family present. Education being provided on risk and benefit of procedure.
[2022-05-01] MEDS ORDERED: midazolam 1 mg/ML 2ml injection ONE (11:01)
[2022-05-01] MEDS ORDERED: fentaNYL/PF 50MCG/1 ML 2ML syringe ONE (11:02)
--- NOTE | 2022-05-01 12:29 | NUR ---
Pt sitting up in bed. VS stable as charted. Pt denies pain. Pt site to anterior abdomen CD&I, no s/s of bleeding or infection.
[2022-05-01 12:37] LABS: GLUCOSE,BODY FLUID 97 MG/DL
[2022-05-01 13:17] LABS: BF RBC COUNT 126 /CU MM; BF WBC COUNT 88 /CU MM (0-1000); BFAPPEAR HAZY; BFCOLOR YELLOW; BFVOLUME 60 ML
[2022-05-01 13:19] LABS: LYMPHOCYTES,BODY FLUID 52 %; MONOCYTES,BODY FLUID 46 %; NEUTROPHILS,BODY FLUID 2 %
[2022-05-01 13:36] LABS: TOTAL PROTEIN,BODY FLUID < 2.0 G/DL
== END 2022-05-01 16:00 | disposition home or self-care (01) ==
LOC: SSTAY O 06:46
PROVIDERS: ATTEND Radiology Diagnostic Radiology
DX: R16.0 Hepatomegaly, not elsewhere classified (principal); K74.60 Unspecified cirrhosis of liver; K75.81 Nonalcoholic steatohepatitis (NASH); K21.9 Gastro-esophageal reflux disease without esophagitis; Z98.890 Other specified postprocedural states; Z79.899 Other long term (current) drug therapy; R18.8 Other ascites
CPT/HCPCS: 10009; 36415; 49083; 82945; 84157; 85025; 85610; 89051; 99152; 99153; J2250; J3010; J7030; 47000; 77012; 85008; A4615; A6258; A6449